=== PATIENT | female | born 1955 | race Caucasian/White ===

== ENCOUNTER → 2019-11-10 08:01 | Outpatient (CLI) | payer OTHER, SELFPAY ==
[2019-10-10 08:00] VITALS: BP 95/46; PULSE 77; RESP 16; TEMP 36.4; BMI 29.5
[2019-10-10] MEDS: Lactated Ringers 1,000 ML 100 ML IV (08:15)
== END ==
PROVIDERS: PCP Nurse Practitioner Family; Referring Provider Specialist; Visit Provider Specialist
DX: S82.032A Displaced transverse fracture of left patella, initial encounter for closed fracture (principal); W18.40XA Slipping, tripping and stumbling without falling, unspecified, initial encounter; Y93.89 Activity, other specified; Y92.198 Other place in other specified residential institution as the place of occurrence of the external cause; Y99.0 Civilian activity done for income or pay; Z53.9 Procedure and treatment not carried out, unspecified reason; Z79.82 Long term (current) use of aspirin; I10 Essential (primary) hypertension; Z79.899 Other long term (current) drug therapy
CPT/HCPCS: J7120; J2405